=== PATIENT | male | born 2000 | race Caucasian/White ===

== ENCOUNTER 2022-12-08 18:12 | Emergency (ER) | payer SELFPAY ==
[~2022-12-08] VITALS: Ht 170.2 cm; Wt 67.1 kg
[2022-12-08] MEDS ORDERED: KETOROLAC TROMETHAMINE 30 MG/ML VIAL IM STA (20:55)
[2022-12-08] MEDS ORDERED: NAPROSYN500 MG PO (21:14)
[2022-12-08 21:28] VITALS: BP 146/80
== END 2022-12-08 21:28 | disposition home or self-care (01) ==
LOC: FSED 19:20
DX: R09.1 Pleurisy (principal); F17.210 Nicotine dependence, cigarettes, uncomplicated
CPT/HCPCS: 71046; 96372; 99283; J1885